=== PATIENT | male | born 1955 | race Caucasian/White ===

== ENCOUNTER 2019-11-12 14:17 | Emergency (ER) | payer BC ==
--- NOTE | 2019-11-12 22:40 | EDM.PDOC ---
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 Stated his tetanus immunization is within 5-10 years but not exactly sure. Onset: Today Onset Date: 11/12/19 Onset Time: 14:00 Location: Reports: Other (Dorsum of Left hand) Severity: Moderate Context: Reports: Trauma Associated Symptoms: Reports: No Other Symptoms Other Treatments BONER MEAT: treated with pressure to control bleeding Left Hand Pain Score (Numeric/FACES): 1 - Related Data Allergies Allergy/AdvReac Type Severity Reaction Status Date / Time No Known Allergies Allergy Verified 06/29/13 12:44 Past Medical History - Past Health History Medical/Surgical History: Denies Medical/Surgical History Cardiovascular History: Reports: Hypertension Social & Family History - Family History Family Medical History: Noncontributory - Tobacco Use Smoking Status *Q: Never Smoker Second Hand Smoke Exposure: No - Alcohol Use Days Per Week of Alcohol Use: 7 Number of Drinks Per Day: 5 Total Drinks Per Week: 35 - Recreational Drug Use Recreational Drug Use: Yes Recreational Drug Type: Reports: Marijuana/Hashish Recreational Drug Use Frequency: Socially ED ROS GENERAL - Review of Systems Review Of Systems: See Below Constitutional: Reports: No Symptoms Respiratory: Reports: No Symptoms Cardiovascular: Reports: No Symptoms GI/Abdominal: Reports: No Symptoms ED EXAM, GENERAL - Physical Exam Exam: See Below Exam Limited By: No Limitations General Appearance: Alert, WD/WN, No Apparent Distress Head: Atraumatic, Normocephalic Neck: Normal Inspection, Supple, Non-Tender Respiratory/Chest: No Respiratory Distress Extremities: Other (7.5 cm laceration to dorsum of left hand thru dermis into subcutanous tissue. NO tendon involvment) Skin Exam: Warm, Dry, Other (Laceration as above) ED GENERAL MEDICAL PROCEDURES - Laceration/Wound Repair Left Hand Lac/wound length in cm: 7 Appearance: Subcutaneous, Linear, Clean Distal NVT: Neuro & Vascular Intact, No Tendon Injury Anesthetic Type: Local Local Anesthesia - Lidocaine (Xylocaine): 1% Plain Local Anesthetic Volume: 4cc Skin Prep: Providone-Iodine (Betadine) Saline irrigation (cc's): 300 Exploration/Debridement/Repair: Wound Explored, Explored to Base, No Foreign Material Found Closed with: Sutures Suture Size: 4-0 # of Sutures: 12 Suture Type: Nylon, Interrupted, Simple Drain Placement: No Sterile Dressing Applied: Nurse Tetanus Status Addressed: Yes Course - Vital Signs Last Recorded V/S: Last Vital Signs Temp 98.2 F 11/12/19 14:23 Pulse 103 H 11/12/19 14:23 Resp 18 11/12/19 14:23 BP 151/95 H 11/12/19 14:23 Pulse Ox 99 11/12/19 14:23 Departure - Departure Time of Disposition: 15:30 Disposition: Home, Self-Care 01 Clinical Impression: Laceration of left hand without complication, excluding fingers Qualifiers: Encounter type: initial encounter Qualified Code(s): S61.412A - Laceration without foreign body of left hand, initial encounter - Discharge Information *PRESCRIPTION DRUG MONITORING PROGRAM REVIEWED*: Not Applicable *COPY OF PRESCRIPTION DRUG MONITORING REPORT IN PATIENT [place]: Not Applicable Instructions: Laceration Care, Adult, [id number], Sutures, [employer], or Adhesive Wound Closure, [id number] Referrals: PCP,None [Primary Care Provider] - Forms: ED Department Discharge Additional Instructions: Discharge home. Wear wrap on hand for 2 days, then remove bandage. Monitor for signs of infection-redness, drainage, red streaks going up the arm. if the wound appears infected come into the ER immediately. Keep hand clean and dry, place hand in a bag when showering. Tylenol or ibuprofen for pain. Have sutures removed in 8-9 days. Call the clinic and see what they advise you to do. Sepsis Event Note - Evaluation Sepsis Screening Result: No Definite Risk - Focused Exam Date Exam was Performed: 11/13/19 Time Exam was Performed: 10:05
== END 2019-11-12 15:30 | disposition home or self-care (01) ==
LOC: LB.ED 14:17
DX: S61.412A Laceration without foreign body of left hand, initial encounter (principal); W26.8XXA Contact with other sharp object(s), not elsewhere classified, initial encounter
CPT/HCPCS: 12002; 99282; 99283; A0425; A0429

== ENCOUNTER 2024-01-26 12:07 | Day surgery (SDC) | payer MEDICARE, BC ==
[~2024-01-26 12:07] MED LIST: Metoclopramide 10 MG/2 ML SDV IV PRN
[2024-01-26] MEDS: Sodium Chloride 0.9% 1,000 ML IV SCH (13:36)
[2024-01-26] MEDS ORDERED: Propofol 200 MG/20 ML SDV ONE (16:00)
== END 2024-01-26 17:35 | disposition home or self-care (01) ==
LOC: LB.SDS 12:07
PROVIDERS: ATTEND Surgery
DX: Z12.11 Encounter for screening for malignant neoplasm of colon (principal); K21.00 Gastro-esophageal reflux disease with esophagitis, without bleeding; K29.50 Unspecified chronic gastritis without bleeding; K29.80 Duodenitis without bleeding; K44.9 Diaphragmatic hernia without obstruction or gangrene; I10 Essential (primary) hypertension
CPT/HCPCS: 43239; 45378; 88305; 88312; 88342; G0121; J2704; J7030